=== PATIENT | female | born 1965 | race Caucasian/White ===

== ENCOUNTER 2017-10-20 10:57 | Emergency (ER) | payer OTHER ==
[~2017-10-20] VITALS: Ht 160 cm; Wt 66.2 kg
[2017-10-20] MEDS ORDERED: LEVO-T100 MCG (11:09)
[2017-10-21] MEDS ORDERED: ULTRACET PO ×2 (10:26→10:31)
[2017-10-21] MEDS ORDERED: CAMBIA50 MG PO (10:26)
[2017-10-21] MEDS ORDERED: DICLOFENAC POTA50 MG PO (10:29)
== END 2017-10-20 13:45 | disposition home or self-care (01) ==
LOC: ER 10:57
DX: S82.65XA Nondisplaced fracture of lateral malleolus of left fibula, initial encounter for closed fracture (principal); W18.39XA Other fall on same level, initial encounter; Y93.89 Activity, other specified; Y92.89 Other specified places as the place of occurrence of the external cause; Y99.8 Other external cause status

== ENCOUNTER 2017-11-02 06:37 | Emergency (ER) | payer OTHER ==
[~2017-11-02] VITALS: Ht 157.5 cm; Wt 65.8 kg
[~2017-11-02 06:37] MED LIST: CAMBIA50 MG PO; DICLOFENAC POTA50 MG PO; LEVO-T100 MCG; ULTRACET PO
== END 2017-11-02 13:42 | disposition home or self-care (01) ==
LOC: ER 06:37
DX: J11.1 Influenza due to unidentified influenza virus with other respiratory manifestations (principal)